=== PATIENT | male | born 1965 | race Caucasian/White ===

== ENCOUNTER → 2019-03-12 10:20 | Outpatient (CLI) | payer OTHER, SELFPAY ==
[2019-03-12 12:40] LABS: Blood Urea Nitrogen 18 mg/dL (9-20); Calcium 10.2 mg/dL (8.4-10.2); Carbon Dioxide 27 mmol/L (22-32); Chloride 95 mmol/L (98-107); Cholesterol 262 mg/dL (140-199); Estimated Glomerular Filt Rate > 60.0 mL/min (>60); Glucose 119 mg/dL (70-100); HEMOLYSIS < 15 (0-50); Potassium 5.5 mmol/L (3.4-5.1); Sodium 136 mmol/L (137-145); Triglycerides 94 mg/dL (35-150)
[2019-03-12 13:09] LABS: HDL Cholesterol 128 mg/dL (40-60); LDL Cholesterol Calculated 115 mg/dL (<100)
[2019-03-12 13:31] LABS: TSH w/ Reflex to FT4 0.14 uIU/mL (0.47-4.68)
[2019-03-12 13:56] LABS: Free T4, Direct Thyroxine 1.14 ng/dL (0.78-2.19)
[2019-03-12 14:02] LABS: Free T3, Triiodothyronine Free 4.42 pg/mL (2.77-5.27)
[2019-03-12 16:42] LABS: Creatinine Urine Random 195.2 mg/dL
[2019-03-12 16:48] LABS: Microalbumi Creatinin Ratio Ur 16.3 ug/mg CR (<30); Microalbumin Urine Random 3.2 mg/dL (0-1.6)
== END ==
PROVIDERS: Visit Provider Registered Nurse
DX: I10 Essential (primary) hypertension (principal)
CPT/HCPCS: 36415; 80048; 80061; 82043; 82570; 84439; 84443; 84481

== ENCOUNTER → 2019-04-21 06:58 | Outpatient (CLI) | payer OTHER, SELFPAY ==
[2019-04-21 08:35] LABS: BUN Creatinine Ratio 14.4 (6-22); Blood Urea Nitrogen 13 mg/dL (9-20); Carbon Dioxide 27 mmol/L (22-32); Chloride 104 mmol/L (98-107); Estimated Glomerular Filt Rate > 60.0 mL/min (>60); Glucose 99 mg/dL (70-100); HEMOLYSIS < 15 (0-50); Potassium 5.3 mmol/L (3.4-5.1); Sodium 141 mmol/L (137-145)
[2019-04-21 09:02] LABS: TSH w/ Reflex to FT4 1.92 uIU/mL (0.47-4.68)
== END ==
PROVIDERS: PCP Registered Nurse; Visit Provider Registered Nurse
DX: R79.89 Other specified abnormal findings of blood chemistry (principal); I10 Essential (primary) hypertension
CPT/HCPCS: 36415; 80048; 84443

== ENCOUNTER 2020-01-06 02:03 | Emergency (ER) | payer OTHER, SELFPAY ==
[2020-01-06] VITALS (29 sets, daily range): BP systolic 128–162; BP diastolic 64–92; PULSE 84–103; RESP 12–23; TEMP 36.7; O2SAT 89–99
--- NOTE | 2020-01-06 02:08 | DI.CT.S_ITS ---
PROCEDURE: CT STROKE INDICATIONS: Left deficit TECHNIQUE: Noncontrast 4.5 mm thick angled axial sections acquired from the foramen magnum to the vertex, with coronal reformats. For radiation dose reduction, the following was used: automated exposure control, adjustment of mA and/or kV according to patient size. COMPARISON: None. FINDINGS: Image quality: Excellent. CSF spaces: Basal cisterns are patent. No extra-axial fluid collections. The ventricles are symmetric in size and shape. Brain: No intracranial bleeds or masses. There is cerebral volume loss for age, with resultant ventricular and sulcal prominence. There are periventricular and deep white matter chronic small vessel ischemic changes. Small subacute versus early chronic right caudate head lacunar infarct. There is intracranial internal carotid artery atherosclerosis. Skull and face: Calvarium and visualized facial bones appear intact, without suspicious lesions. Mucosal thickening noted in the visualized portion of the right maxillary sinus. The mastoids are clear. IMPRESSION: 1. Small subacute versus early chronic right caudate head lacunar infarct. 2. No intracranial hemorrhage. This study fulfills neurological imaging criteria for inclusion or exclusion of acute stroke therapies based on available published neurological guidelines. Dictated by: Esther Clifton MD, PhD on 01/06/2020 at 7:21 Approved by: Esther Clifton MD, PhD on 01/06/2020 at 7:24
[2020-01-06 02:17] LABS: Prothrombin Time 11.5 SECONDS (10.1-12.7)
[2020-01-06 02:18] LABS: Add Manual Diff / Slide Review NO; Basophils Absolute Auto 100 /uL (0-100); Basophils Percent Auto 0.9 % (0-2); Eosinophils Absolute Auto 600 /uL (0-450); Eosinophils Percent Auto 4.7 % (2-4); Hematocrit 48.3 % (41-53); Hemoglobin 16.4 g/dL (13.5-17.5); Lymphocytes Absolute Auto 4100 /uL (1100-4500); Lymphocytes Percent Auto 34.2 % (25-40); Mean Corpuscular HGB Conc 33.9 % (30-36); Mean Corpuscular Hemoglobin 30.2 PG (26-34); Monocytes Absolute Auto 1000 /uL (0-900); Monocytes Percent Auto 8.1 % (3-14); Neutrophils Absolute Auto 6300 /uL (1500-7000); Neutrophils Percent Auto 52.1 % (50-75); Platelet Count 309 X10^3/uL (150-400); Red Blood Cell Count 5.43 X10^6/uL (4.5-5.9); Red Cell Distribution Width 13.9 % (11.6-14.8); White Blood Cell Count 12.1 X10^3/uL (4.5-11.0)
[2020-01-06 02:20] LABS: PTT Partial Thromboplastin Tim 30 SECONDS (26.4-36.2)
[2020-01-06 02:22] LABS: Blood Urea Nitrogen 18 mg/dL (9-20); Calcium 10.1 mg/dL (8.4-10.2); Carbon Dioxide 26 mmol/L (22-32); Chloride 104 mmol/L (98-107); Creatine Kinase 81 U/L (55-170); Estimated Glomerular Filt Rate > 60.0 mL/min (>60); Glucose 123 mg/dL (70-100); HEMOLYSIS 17 (0-50); Sodium 144 mmol/L (137-145)
--- NOTE | 2020-01-06 02:24 | ED_ITS ---
HPI - Neuro Symptoms/Deficit <George Jaime MD - Last Filed: 01/06/20 07:21> General Chief Complaint: Neuro Symptoms/Deficit Stated Complaint: Stroke Time Seen by Provider: 01/06/20 02:07 Source: patient Mode of arrival: EMS Limitations: no limitations History of Present Illness HPI Narrative: The patient was playing [employer] about 11-1130 p.m. tonight. He noted that his left hand felt tired. He decided to go to bed. About 20 is prior to arrival he awoke with left weakness. He rolled over, noting his left side was flaccid. He was able to summon 911. He did drink alcohol tonight. He had no fall or head injury. He is answering questions appropriate on arrival. He has left facial, left arm and left leg numbness, and weakness. At the time of arrival he is approaching 3 hours since the initial weakness noted prior to going to bed. He rides a bicycle regularly. While biking a few days ago he had a brief period of left facial numbness, this resolved in seconds, while riding. There is comprehensive now left-sided weakness. He has no obvious history of TIA/CVA. He was previously on medications for hypertension, as well as aspirin. He has not taken medications in over a year. There is no significant family history of CVA. He denies recent illness. He has no chest pain. He has no palpitations or history of arrhythmia. Related Data Home Medications Medication Instructions Recorded Confirmed No Known Home Medications 01/06/20 01/06/20 Allergies Allergy/AdvReac Type Severity Reaction Status Date / Time No Known Drug Allergies Allergy Verified 01/06/20 10:38 Review of Systems <George Jaime MD - Last Filed: 01/06/20 07:21> Review of Systems ROS Unobtainable: All systems reviewed & are unremarkable except as noted in HPI and below Constitutional Constitutional: Denies fever(s), Denies headache(s), Denies lethargy and Reports weakness Eyes Eyes: Denies blurry vision, Denies change in vision, Denies irritation and Denies loss of vision ENT Ears, Nose, Mouth, and Throat: Denies vertigo, Denies dizziness, Denies headache(s) and Denies neck pain (Left-sided) Cardiovascular Cardiovascular: Denies chest pain, Denies lightheadedness, Denies palpitations, Denies dyspnea and Denies orthopnea Respiratory Respiratory: Denies cough, Denies dyspnea and Denies wheezing Gastrointestinal Gastrointestinal: Denies abdominal pain, Denies change in bowel habits, Denies diarrhea, Denies nausea and Denies vomiting Musculoskeletal Musculoskeletal: Reports as per HPI, Denies back pain, Denies neck pain (Left- sided) and Reports tingling Integumentary/Breasts Skin/Breast: Denies alopecia, Denies erythema, Denies rash and Denies wounds Neurologic Neurologic: Denies confusion, Denies vertigo, Denies dizziness, Denies he adache(s), Denies loss of vision, Reports tingling and Reports weakness Psychiatric Psychiatric: Reports anxiety, Denies confusion and Denies depression Endocrine Endocrine: Denies palpitations Hematologic/Lymphatic Hematologic/Lymphatic: Denies easy bleeding Allergic/Immunologic Allergic/Immunologic: Denies wheezing Patient History <George Jaime MD - Last Filed: 01/06/20 07:21> Medical History Anxiety (Chronic) Depression (Chronic) Facial trauma (Resolved) Right inguinal hernia (Chronic) Surgical History Anesthesia (Resolved) History of facial surgery (Resolved ~1972) Family History Grandfather Cancer Grandmother Cancer Grandfather Cancer Grandmother Cancer Social History marital status: household members: other (Roommate) lives independently: Yes housing: house pets and animals: Yes education level: high school occupational status: employed current occupational exposures/hazards: No 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[place], mechanical maintenance supervisor leisure activities: exercise seatbelt use: always helmet use: Yes water heater temp set < 120 deg: Yes working smoke detector in home: Yes fire extinguisher in home: Yes carbon monox detector in home: Yes firearms in home: No do you feel safe at home: Yes Smoking Status: Former smoker (Smoked 1 pack per week on and off for 5 years) Smokeless tobacco user: chewing tobacco (Quit 8 years ago after using since age 5) alcohol intake: former substance use type: former substance user (Marijuana) during the past year weight has: remained stable well-balanced diet: daily or most days daily servings fruits/ve-1 caffeine: Yes (2.5 cups coffee, 1 cup tea) eating out: rarely or never Type(s) of exercise: walking and bicycling frequency: 5-6 times per week duration: 45-60 minutes/day Smoking Status: Former smoker (Smoked 1 pack per week on and off for 5 years) Exam <George Jaime MD - Last Filed: 01/06/20 07:21> Initial Vital Signs Initial Vital Signs: Vital Signs Temperature 98.1 F 01/06/20 02:08 Pulse Rate 97 H 01/06/20 02:08 Respiratory Rate 16 01/06/20 02:08 Blood Pressure 147/82 H 01/06/20 02:08 Pulse Oximetry 98 01/06/20 02:08 Const General: cooperative, well developed, anxious and intoxicated appearing Nutritional Appearance: well nourished Limitations: mental status not altered HENNM Head: normocephalic and atraumatic Nose: external nose normal and nasal discharge Face and sinus: sinuses nontender, face symmetric, no sinus tenderness and No dry mucous membranes Mouth: oral mucosae normal and moist mucous membranes Teeth and gingiva: dentition normal Throat: posterior oropharynx normal and tonsils normal Eyes General: appearance normal, both eyes and all related structures Visual Mccrary: normal visual mccrary by confrontation Alignment and Position: alignment normal Eyelids: eyelids normal Conjunctivae: conjunctivae normal Sclera: sclerae normal Pupils: PERRL EOM: EOM intact bilaterally Neck Neck: No JVD Carotids: no bruits Lymphatic: No lymphedema Chest Chest: normal inspection of the chest Resp Effort & Inspection: normal respiratory effort and able to speak in complete sentences Auscultation: clear to auscultation bilaterally, no rales, no rhonchi and no wheezes Cardio Rate: regular rate Rhythm: regular rhythm Heart Sounds: no click, no gallops, no murmurs and no rubs Pulses: normal peripheral pulses GI Inspection: non-distended Palpation: soft, no hepatosplenomegaly, No guarding and No tender Auscultation: normal bowel sounds Back/Spine/Pelvis Back: No CVA tenderness Cervical Spine: cervical ROM normal and No pain with cervical ROM Thoracic/Lumbar Spine: thoracic and lumbar spine normal to inspection Skin General: no rashes or lesions noted, No jaundice and No petechiae Neuro General: alert, oriented x3, gait normal and not confused Cranial Nerves: CN's II-XI intact bilaterally, PERRL, accommodation normal and EOM intact bilaterally Speech: speech normal Motor: other (Left facial droop. Left arm weakness. Left leg weakness.) Sensory Exam: other (Decreased light touch sensation to the left face, arm and foot.) Extrem General: full ROM, No no clubbing, cyanosis or edema, no pedal edema and no calf tenderness Psych Appearance: well kempt Attitude: cooperative Thought Content: normal Judgment: judgment good <Camila Hinojosa MD - Last Filed: 01/06/20 18:00> Initial Vital Signs Initial Vital Signs: Vital Signs Temperature 98.1 F 01/06/20 02:08 Pulse Rate 97 H 01/06/20 02:08 Respiratory Rate 16 01/06/20 02:08 Blood Pressure 147/82 H 01/06/20 02:08 Pulse Oximetry 98 01/06/20 02:08 Scores <George Jaime MD - Last Filed: 01/06/20 07:21> NIH Stroke Scale Level of Conciousness: Alert, keenly responsive Ask month/age: Answers both questions correctly. Open/close eyes, close hand: Performs both tasks correctly Best gaze horizontal: Normal Visual mccrary: No visual loss Facial palsy: Partial paralysis, total or near total paralysis of lower face Left arm drift: Drifts down, not to bed Right arm drift: No drift for full 10 sec Left leg drift: Drifts down, not to bed Right leg drift: No drift for full 10 sec Limb ataxia: Present in one limb Sensory on face/arms/legs: Mild to moderate sensory loss, can tell touch Best language: Mild to moderate, slurs some words Dysarthria: Mild to mod,some slurring Extinction or inattention: No abnormality Total NIH Stroke scale score: 8 Course <George Jaime MD - Last Filed: 01/06/20 07:21> Course Course Narrative: The patient presents with significant left-sided deficits, CT was reviewed, he was felt to be a candidate for tPA. He was prepped for tPA, but at that time showed dramatic improvement. CTA of the brain was done, revealing a right MCA lesion. He had the initial period several days ago of left facial numbness that resolved within seconds. This is considered a potential 2nd event. The case was discussed with stroke neurologist, Dr. Williamson, at [facility] in [place]. The initial plan to give tPA was aborted as he improved. However, he will be transferred to [facility] for care by Neurology regarding the stroke and the findings as noted above. The patient was given aspirin, Lipitor 80 mg p.o. He is in normal sinus rhythm, blood pressures are in the 140-150 range. The improved progressively ,his NIHSS is 0 at the time of transfer. Orders Ordered: Discontinued Medications Aspirin (Aspirin Chew) 324 mg PO NOW ONE Stop: 01/06/20 02:51 Last Admin: 01/06/20 02:59 Dose: 324 mg Documented by: GEETA Atorvastatin Calcium (Lipitor) 80 mg PO NOW ONE Stop: 01/06/20 03:36 Last Admin: 01/06/20 03:46 Dose: 80 mg Documented by: BRADEN Sodium Chloride (Normal Saline 0.9%) 1,000 mls @ 150 mls/hr IV CONT STACIE Last Infusion: 01/06/20 10:06 Dose: 0 mls/hr Documented by: Admin: 01/06/20 02:45 Dose: 150 mls/hr Documented by: GEETA Sodium Chloride (Normal Saline 0.9%) 1,000 mls @ 125 mls/hr IV BOLUS ONE Stop: 01/06/20 18:27 Last Infusion: 01/06/20 11:31 Dose: 0 mls/hr Documented by: Admin: 01/06/20 10:36 Dose: 125 mls/hr Documented by: DEVYN Vital Signs Vital signs: Vital Signs - 8 hr 01/06/20 10:30 01/06/20 11:13 Pulse Rate 93 H 90 Respiratory Rate 23 18 Blood Pressure [Right Arm] 153/83 H 146/80 H Pulse Oximetry 98 99 <Camila Hinojosa MD - Last Filed: 01/06/20 18:00> Orders Ordered: Discontinued Medications Aspirin (Aspirin Chew) 324 mg PO NOW ONE Stop: 01/06/20 02:51 Last Admin: 01/06/20 02:59 Dose: 324 mg Documented by: GEETA Atorvastatin Calcium (Lipitor) 80 mg PO NOW ONE Stop: 01/06/20 03:36 Last Admin: 01/06/20 03:46 Dose: 80 mg Documented by: BRADEN Sodium Chloride (Normal Saline 0.9%) 1,000 mls @ 150 mls/hr IV CONT STACIE Last Infusion: 01/06/20 10:06 Dose: 0 mls/hr Documented by: Admin: 01/06/20 02:45 Dose: 150 mls/hr Documented by: GEETA Sodium Chloride (Normal Saline 0.9%) 1,000 mls @ 125 mls/hr IV BOLUS ONE Stop: 01/06/20 18:27 Last Infusion: 01/06/20 11:31 Dose: 0 mls/hr Documented by: Admin: 01/06/20 10:36 Dose: 125 mls/hr Documented by: DEVYN Reevaluation(s) Reevaluation #1: Patient remains in the emergency room at this time due to staffing shortages and beds not currently being available at [facility]. Notes are reviewed and patient was reexamined. His left-sided symptoms continue to wax and wane and were getting worse over the last half an hour. His stroke scale at 2:30 a.m. in the morning was a 4, repeated at 9:15 a.m. in the morning it it increased to an 8. At 10:05 a.m. it is back down to a 4. This is due to left-sided weakness left-sided ataxia and mild dysarthria. Call back to [facility] stroke Neurology. With the known in the M1 segment of the right middle cerebral artery, waxing and waning symptoms and pending transfer to [facility] in concerned that he actually may be a very appropriate interventional candidate and needs more urgent evaluation. Neurologist is talking with there control center to see if we can facilitate more rapid transfer. Time: 10:04 Reevaluation #2: Spoke with Dr. Mchugh, [facility]. We have decided that with this gentleman were simply going to initiate a code IR and he will be going immediately to [facility] for consideration of additional intervention Time: 10:43 Reevaluation #3: Discussion over transport. Airlift was contacted as was [facility]. There is a low ceiling and [facility] is immediately available. At this point with airlift not yet landed [facility] ready to transport, traffic conditions light fastest transport will be ground with [facility] ambulance and we will proceed with that Time: 11:28 Vital Signs Vital signs: Vital Signs - 8 hr 01/06/20 10:30 01/06/20 11:13 Pulse Rate 93 H 90 Respiratory Rate 23 18 Blood Pressure [Right Arm] 153/83 H 146/80 H Pulse Oximetry 98 99 MDM - Neuro Symptoms/Deficit <George Jiame MD - Last Filed: 01/06/20 07:21> Lab Data Result diagrams: 01/06/20 02:00 01/06/20 02:00 Labs: Lab Results 01/06/20 01/06/20 01/06/20 Range/Units 02:00 02:00 02:00 WBC 12.1 H (4.5-11.0) X10^3/uL RBC 5.43 (4.5-5.9) X10^6/uL Hgb 16.4 (13.5-17.5) g/dL Hct 48.3 (41-53) % MCV 89.0 (80-100) fL MCH 30.2 (26-34) PG MCHC 33.9 (30-36) % RDW 13.9 (11.6-14.8) % Plt Count 309 (150-400) X10^3/uL Neut % (Auto) 52.1 (50-75) % Lymph % (Auto) 34.2 (25-40) % [place] % (Auto) 8.1 (3-14) % Eos % (Auto) 4.7 H (2-4) % Baso % (Auto) 0.9 (0-2) % Neut # (Auto) 6300 (1474-9072) /uL Lymph # (Auto) 4100 (6018-5976) /uL [place] # (Auto) 1000 H (0-900) /uL Eos # (Auto) 600 H (0-450) /uL Baso # (Auto) 100 (0-100) /uL PT 11.5 (10.1-12.7) SECONDS INR 1.0 (0.9-1.3) APTT 30 (26.4-36.2) SECONDS Sodium (137-145) mmol/L Potassium (3.4-5.1) mmol/L Chloride (98-107) mmol/L Carbon Dioxide (22-32) mmol/L BUN (9-20) mg/dL Creatinine (0.66-1.25) mg/dL Estimated GFR (>60) mL/min BUN/Creatinine Ratio (6-22) Glucose (70-100) mg/dL Calcium (8.4-10.2) mg/dL Total Creatine Kinase 81 (55-170) U/L CK-MB (CK-2) TNP CK-MB (CK-2) Rel Index TNP Troponin I < 0.012 (0.01-0.034) ng/mL Urine RBC (0-5/HPF) Urine WBC (0-5/HPF) Urine Bacteria (None) Ur Culture Indicated? Micro UA Comment U Opiates 300ng/mL cut (Negative) Ur Oxycodone Screen (Negative) Urine Methadone Screen (Negative) Ur Barbiturates Screen (Negative) U Tricyclic Antidepress (Negative) Ur Phencyclidine Scrn (Negative) Ur Amphetamines Screen (Negative) U Methamphetamines Scrn (Negative) Ur MDMA Scrn (Ecstasy) (Negative) U Benzodiazepines Scrn (Negative) Urine Cocaine Screen (Negative) U Marijuana (THC) Screen (Negative) 01/06/20 01/06/20 01/06/20 Range/Units 02:00 03:33 03:33 WBC (4.5-11.0) X10^3/uL RBC (4.5-5.9) X10^6/uL Hgb (13.5-17.5) g/dL Hct (41-53) % MCV (80-100) fL MCH (26-34) PG MCHC (30-36) % RDW (11.6-14.8) % Plt Count (150-400) X10^3/uL Neut % (Auto) (50-75) % Lymph % (Auto) (25-40) % [place] % (Auto) (3-14) % Eos % (Auto) (2-4) % Baso % (Auto) (0-2) % Neut # (Auto) (8828-9851) /uL Lymph # (Auto) (3506-6615) /uL [place] # (Auto) (0-900) /uL Eos # (Auto) (0-450) /uL Baso # (Auto) (0-100) /uL PT (10.1-12.7) SECONDS INR (0.9-1.3) APTT (26.4-36.2) SECONDS Sodium 144 (137-145) mmol/L Potassium 4.0 (3.4-5.1) mmol/L Chloride 104 (98-107) mmol/L Carbon Dioxide 26 (22-32) mmol/L BUN 18 (9-20) mg/dL Creatinine 0.90 (0.66-1.25) mg/dL Estimated GFR > 60.0 (>60) mL/min BUN/Creatinine Ratio 20.0 (6-22) Glucose 123 H (70-100) mg/dL Calcium 10.1 (8.4-10.2) mg/dL Total Creatine Kinase (55-170) U/L CK-MB (CK-2) CK-MB (CK-2) Rel Index Troponin I (0.01-0.034) ng/mL Urine RBC None seen (0-5/HPF) Urine WBC None seen (0-5/HPF) Urine Bacteria None seen (None) Ur Culture Indicated? Cult not indicated Micro UA Comment Microscopic normal U Opiates 300ng/mL cut Negative (Negative) Ur Oxycodone Screen Negative (Negative) Urine Methadone Screen Negative (Negative) Ur Barbiturates Screen Negative (Negative) U Tricyclic Antidepress Negative (Negative) Ur Phencyclidine Scrn Negative (Negative) Ur Amphetamines Screen Negative (Negative) U Methamphetamines Scrn Negative (Negative) Ur MDMA Scrn (Ecstasy) Negative (Negative) U Benzodiazepines Scrn Negative (Negative) Urine Cocaine Screen Negative (Negative) U Marijuana (THC) Screen Positive H (Negative) Point of Care Testing Glucose POC 100 Urine Dip Bedside Urine Glucose Negative Bedside Urine Bilirubin - Negative Bedside Urine Ketone - Negative Urine Specific [place] 1.005 Bedside Urine Occult Blood - Negative Bedside Urine pH 7.0 Bedside Urine Protein +/- 15 Bedside Urine Urobilinogen +/- 1mg Bedside Urine Nitrite - Negative Bedside Urine Leukocytes +/- [address] scan - head: Radiologist's Impression: Age indeterminate lacunar infarct at the right caudate head. No acute findings. CT angio head:: Radiologist's Impression: Focal area of occlusion within the mid right M1 segment. No other acute findings. ECG Data Attestation: I personally reviewed and interpreted this ECG as follows: (Normal sinus rhythm rate 99 beats per minute. Normal intervals. No ectopy. No acute ST T wave changes. Normal study.) <Camila Hinojosa MD - Last Filed: 01/06/20 18:00> Lab Data Labs: Lab Results 01/06/20 01/06/20 01/06/20 Range/Units 02:00 02:00 02:00 WBC 12.1 H (4.5-11.0) X10^3/uL RBC 5.43 (4.5-5.9) X10^6/uL Hgb 16.4 (13.5-17.5) g/dL Hct 48.3 (41-53) % MCV 89.0 (80-100) fL MCH 30.2 (26-34) PG MCHC 33.9 (30-36) % RDW 13.9 (11.6-14.8) % Plt Count 309 (150-400) X10^3/uL Neut % (Auto) 52.1 (50-75) % Lymph % (Auto) 34.2 (25-40) % [place] % (Auto) 8.1 (3-14) % Eos % (Auto) 4.7 H (2-4) % Baso % (Auto) 0.9 (0-2) % Neut # (Auto) 6300 (5280-2015) /uL Lymph # (Auto) 4100 (0536-5110) /uL [place] # (Auto) 1000 H (0-900) /uL Eos # (Auto) 600 H (0-450) /uL Baso # (Auto) 100 (0-100) /uL PT 11.5 (10.1-12.7) SECONDS INR 1.0 (0.9-1.3) APTT 30 (26.4-36.2) SECONDS Sodium (137-145) mmol/L Potassium (3.4-5.1) mmol/L Chloride (98-107) mmol/L Carbon Dioxide (22-32) mmol/L BUN (9-20) mg/dL Creatinine (0.66-1.25) mg/dL Estimated GFR (>60) mL/min BUN/Creatinine Ratio (6-22) Glucose (70-100) mg/dL Calcium (8.4-10.2) mg/dL Total Creatine Kinase 81 (55-170) U/L CK-MB (CK-2) TNP CK-MB (CK-2) Rel Index TNP Troponin I < 0.012 (0.01-0.034) ng/mL Urine RBC (0-5/HPF) Urine WBC (0-5/HPF) Urine Bacteria (None) Ur Culture Indicated? Micro UA Comment U Opiates 300ng/mL cut (Negative) Ur Oxycodone Screen (Negative) Urine Methadone Screen (Negative) Ur Barbiturates Screen (Negative) U Tricyclic Antidepress (Negative) Ur Phencyclidine Scrn (Negative) Ur Amphetamines Screen (Negative) U Methamphetamines Scrn (Negative) Ur MDMA Scrn (Ecstasy) (Negative) U Benzodiazepines Scrn (Negative) Urine Cocaine Screen (Negative) U Marijuana (THC) Screen (Negative) 01/06/20 01/06/20 01/06/20 Range/Units 02:00 03:33 03:33 WBC (4.5-11.0) X10^3/uL RBC (4.5-5.9) X10^6/uL Hgb (13.5-17.5) g/dL Hct (41-53) % MCV (80-100) fL MCH (26-34) PG MCHC (30-36) % RDW (11.6-14.8) % Plt Count (150-400) X10^3/uL Neut % (Auto) (50-75) % Lymph % (Auto) (25-40) % [place] % (Auto) (3-14) % Eos % (Auto) (2-4) % Baso % (Auto) (0-2) % Neut # (Auto) (8833-3348) /uL Lymph # (Auto) (2776-2298) /uL [place] # (Auto) (0-900) /uL Eos # (Auto) (0-450) /uL Baso # (Auto) (0-100) /uL PT (10.1-12.7) SECONDS INR (0.9-1.3) APTT (26.4-36.2) SECONDS Sodium 144 (137-145) mmol/L Potassium 4.0 (3.4-5.1) mmol/L Chloride 104 (98-107) mmol/L Carbon Dioxide 26 (22-32) mmol/L BUN 18 (9-20) mg/dL Creatinine 0.90 (0.66-1.25) mg/dL Estimated GFR > 60.0 (>60) mL/min BUN/Creatinine Ratio 20.0 (6-22) Glucose 123 H (70-100) mg/dL Calcium 10.1 (8.4-10.2) mg/dL Total Creatine Kinase (55-170) U/L CK-MB (CK-2) CK-MB (CK-2) Rel Index Troponin I (0.01-0.034) ng/mL Urine RBC None seen (0-5/HPF) Urine WBC None seen (0-5/HPF) Urine Bacteria None seen (None) Ur Culture Indicated? Cult not indicated Micro UA Comment Microscopic normal U Opiates 300ng/mL cut Negative (Negative) Ur Oxycodone Screen Negative (Negative) Urine Methadone Screen Negative (Negative) Ur Barbiturates Screen Negative (Negative) U Tricyclic Antidepress Negative (Negative) Ur Phencyclidine Scrn Negative (Negative) Ur Amphetamines Screen Negative (Negative) U Methamphetamines Scrn Negative (Negative) Ur MDMA Scrn (Ecstasy) Negative (Negative) U Benzodiazepines Scrn Negative (Negative) Urine Cocaine Screen Negative (Negative) U Marijuana (THC) Screen Positive H (Negative) Point of Care Testing Glucose POC 100 Urine Dip Bedside Urine Glucose Negative Bedside Urine Bilirubin - Negative Bedside Urine Ketone - Negative Urine Specific [place] 1.005 Bedside Urine Occult Blood - Negative Bedside Urine pH 7.0 Bedside Urine Protein +/- 15 Bedside Urine Urobilinogen +/- 1mg Bedside Urine Nitrite - Negative Bedside Urine Leukocytes +/- 15 Esterase Critical Care Time <George Jaime MD - Last Filed: 01/06/20 07:21> Critical Care Time Critical Care Time: Yes Total Critical Care Time: 45 Attestation: Critical care time included initial patient assessment, review of lab, radiology, and cardiology data, continued management of his case regarding meds and the repeat CT. Results were discussed with the patient, including potential tPA. The case was discussed with Dr. Williamson, neurology, and Dr. Santiago, hospitalist at [facility]. Transfer was arranged. Discharge Plan Departure Patient Disposition: [facility] Clinical Impression: Acute CVA (cerebrovascular accident) Discharge Date/Time: 01/06/20 11:31 Prescriptions: No Action No Known Home Medications RF: 0 Referrals: Leigh Ann Bush ARNP [Primary Care Provider] -
--- NOTE | 2020-01-06 02:27 | DI.CT.S_ITS ---
PROCEDURE: CT ANGIO HEAD AND NECK INDICATIONS: Left motor and sensory deficit TECHNIQUE: Pre-contrast 4.5 mm thick sections acquired from the foramen magnum to the vertex. After the administration of intravenous contrast, 1 mm thick sections acquired from the aortic arch through the [place] of [place]. Post-contrast 4.5 mm thick sections then re-acquired from the foramen magnum to the vertex. 3-dimensional [id number] (MIP) and/or volume rendering reformats were acquired of the central intracranial vasculature and neck separately. COMPARISON: [facility], CT, CT STROKE, 01/06/2020, 1:51. FINDINGS: Image quality: Excellent. BRAIN: CSF spaces: Ventricles are normal in size and shape. Basal cisterns are patent. No extra-axial fluid collections. Brain: No midline shift. No intracranial bleeds or masses. Small subacute versus early chronic right caudate lacunar infarct is stable compared to prior CT scan. There is diffuse cerebral volume loss. There are periventricular and subcortical white matter chronic microvascular ischemic changes. Skull and face: Calvarium and facial bones appear intact, without suspicious lesions. Orbits appear normal. Incidental note made of torus mandibularis. Sinuses: Moderate right and mild left maxillary sinus mucosal thickening. The mastoids are clear. HEAD CT ANGIOGRAPHY: Anterior circulation: Intracranial internal carotid arteries are normal in flow. Atherosclerotic calcifications of the cavernous and clinoid segments of the internal carotid arteries bilaterally which causes mild stenosis. The flow within the paired anterior cerebral arteries is normal and symmetric. Filling defect is noted in the mid aspect of the M1 segment of the right middle cerebral artery compatible with thrombus. Left middle cerebral artery is fully patent. The anterior communicating artery is seen. No aneurysms are seen. Posterior circulation: Visualized portions of the vertebral arteries demonstrate normal caliber, and join to form a normal appearing basilar artery. Flow within the posterior cerebral arteries is normal and symmetric. No aneurysms are seen. The dural sinuses demonstrate normal postcontrast enhancement. NECK CT ANGIOGRAPHY: Carotid system: The great vessels demonstrate a conventional anatomy as they arise from the aortic arch. The origins of the common carotid arteries appear patent. The common carotid arteries demonstrate normal caliber and courses. Calcified and soft atherosclerotic plaque noted in the origins of the internal carotid arteries bilaterally which causes less than 50% stenosis of the vessels. Posterior circulation: The origins of the vertebral arteries both appear widely patent. Patient is left vertebral artery dominant. The more superior extracranial portions of both vertebral arteries also demonstrate normal courses and calibers. They join to form a normal appearing basilar artery. Soft tissues: Visualized neck soft tissues demonstrate no suspicious abnormalities. Bones: No suspicious bony lesions. Spine degenerative disc disease and facet arthropathy. Visualized cervical spine appears normally aligned. IMPRESSION: 1. Small subacute/early chronic right caudate head lacunar infarct. 2. Thrombus involving the M1 segment of the right middle cerebral artery. 3. No intracranial hemorrhage. Any quantitative measurements of stenosis were performed using NASCET criteria. Dictated by: Esther Clifton MD, PhD on 01/06/2020 at 8:32 Approved by: Esther Clifton MD, PhD on 01/06/2020 at 8:42
[2020-01-06 02:34] LABS: Troponin I < 0.012 ng/mL (0.01-0.034)
--- NOTE | 2020-01-06 02:42 | PC.NURSE ---
Pt now holding left arm and left leg off the bed. Neuro status improving. Dr Jaime at bedside.
[2020-01-06] MEDS: SODIUM CHLORIDE 0.9% 1,000 ML 150 ML IV (02:45)
[2020-01-06] MEDS: ASPIRIN 81 MG CHEW TAB 324 MG PO (02:59)
[2020-01-06] MEDS: ATORVASTATIN 20 MG TABLET 80 MG PO (03:46)
[2020-01-06 03:49] LABS: Bacteria Urine None Seen; RBC Urine None Seen (0-5/HPF); WBC Urine None Seen (0-5/HPF)
[2020-01-06 03:54] LABS: UR Morphine/Opiate cutoff 300 Negative (Negative); Ur Creatinine 20 (Normal); Ur Specific Gravity 1.015 (Normal); Urine Amphetamines Negative (Negative); Urine Cocaine Negative (Negative); Urine MDMA Negative (Negative); Urine Methamphetamines Negative (Negative); Urine Phencyclidine Negative (Negative); Urine Tetrahydrocannabinol Positive (Negative); Urine pH 5 (Normal)
[2020-01-06 03:55] LABS: Urine Barbiturates Negative (Negative); Urine Benzodiazepines Negative (Negative); Urine Methadone Negative (Negative); Urine Oxycodone Negative (Negative); Urine Tricyclic Antidepressant Negative (Negative)
[2020-01-06 03:59] LABS: Culture Indicated Urine Cult Not Indicated; Urine Comments Microscopic Normal
[2020-01-06] MEDS: SODIUM CHLORIDE 0.9% 1,000 ML 125 ML IV (10:36)
--- NOTE | 2020-01-06 10:53 | PC.NURSE ---
Of note, pt has sporadic medical care. He was prescribed anti hypertensive medications as well as baby asa daily. Pt has never taken them. He usually goes to a walk in clinic for symptomatic care.
--- NOTE | 2020-01-06 11:45 | PC.NURSE ---
Report given to Elizabeth MAC in [facility] ED, Yasmin @ [facility] Neuro ICU. Report given to NWA @ bedside NS ended for purposes of [facility] documentation @ 1136. Please see NWA documentation for continuation / Medications.
== END 2020-01-06 11:31 | disposition short-term general hospital (02) ==
PROVIDERS: Emergency Medicine; Emergency Provider Emergency Medicine; PCP Registered Nurse
DX: I63.9 Cerebral infarction, unspecified (principal); I10 Essential (primary) hypertension
CPT/HCPCS: 70450; 70496; 70498; 80048; 80305; 81003; 81015; 82550; 82962; 84484; 85025; 85610; 85730; 93005; 93010; 96360; 96361; 99285; 99291; Q9967

== ENCOUNTER → 2020-04-13 09:34 | Outpatient (CLI) | payer OTHER, SELFPAY ==
[2020-04-13 11:01] LABS: Add Manual Diff / Slide Review NO; Basophils Absolute Auto 0 /uL (0-100); Basophils Percent Auto 0.6 % (0-2); Eosinophils Absolute Auto 300 /uL (0-450); Eosinophils Percent Auto 3.3 % (2-4); Hematocrit 42.4 % (41-53); Hemoglobin 14.5 g/dL (13.5-17.5); Lymphocytes Absolute Auto 1400 /uL (1100-4500); Lymphocytes Percent Auto 18.1 % (25-40); Mean Corpuscular HGB Conc 34.1 % (30-36); Mean Corpuscular Hemoglobin 30.9 PG (26-34); Mean Corpuscular Volume 90.5 fL (80-100); Monocytes Absolute Auto 700 /uL (0-900); Monocytes Percent Auto 8.6 % (3-14); Neutrophils Absolute Auto 5200 /uL (1500-7000); Neutrophils Percent Auto 69.4 % (50-75); Platelet Count 240 X10^3/uL (150-400); Red Blood Cell Count 4.69 X10^6/uL (4.5-5.9); Red Cell Distribution Width 13.7 % (11.6-14.8); White Blood Cell Count 7.6 X10^3/uL (4.5-11.0)
[2020-04-13 11:29] LABS: Alanine Aminotransferase 18 IU/L (<50); Albumin 4.4 g/dL (3.5-5.0); Albumin Globulin Ratio 1.7 (1.0-2.8); Alkaline Phosphatase 76 U/L (38-126); Aspartate Aminotransferase 26 IU/L (17-59); BUN Creatinine Ratio 14.5 (6-22); Bilirubin Total 0.6 mg/dL (0.2-1.3); Blood Urea Nitrogen 12 mg/dL (9-20); Calcium 9.2 mg/dL (8.4-10.2); Carbon Dioxide 27 mmol/L (22-32); Chloride 104 mmol/L (98-107); Estimated Glomerular Filt Rate > 60.0 mL/min (>60); Globulin 2.6 g/dL (1.7-4.1); Glucose 104 mg/dL (70-100); HEMOLYSIS < 15 (0-50); Potassium 4.7 mmol/L (3.4-5.1); Sodium 139 mmol/L (137-145)
[2020-04-13 11:57] LABS: Prostate Specific Antigen Scrn 2.21 ng/mL (0.1-4.0); TSH w/ Reflex to FT4 0.91 uIU/mL (0.47-4.68)
== END ==
PROVIDERS: PCP Internal Medicine; Referring Provider Internal Medicine; Visit Provider Internal Medicine
DX: Z12.5 Encounter for screening for malignant neoplasm of prostate (principal); I10 Essential (primary) hypertension; Z86.73 Personal history of transient ischemic attack (TIA), and cerebral infarction without residual deficits
CPT/HCPCS: 36415; 80053; 84443; 85025; G0103